=== PATIENT | male | born 1980 | race Caucasian/White ===

== ENCOUNTER → 2018-04-27 | Outpatient (CLI) | payer OTHER ==
--- NOTE | 2018-04-27 10:07 | XR ---
EXAMINATION TYPE: XR shoulder limited RT DATE OF EXAM: 04/27/2018 CLINICAL HISTORY: Right shoulder pain with no known injury TECHNIQUE: 2 views of the right shoulder are obtained. COMPARISON: None. FINDINGS: There is no acute fracture/dislocation evident in the right shoulder. The acromioclavicul ar and glenohumeral joint spaces appear within normal limits. The visualized ribs are intact and unr emarkable. IMPRESSION: Internal rotation and Y view were performed. External rotation was not performed. The pat ient could return for additional view if desired. However on the submitted views there is no evidence of acute fracture or dislocation of the right shoulder nor significant arthropathy.
== END | disposition home or self-care (01) ==
LOC: RADXRMAIN 07:06
PROVIDERS: ATTEND Family Medicine
DX: M25.511 Pain in right shoulder (principal)